=== PATIENT | female | born 1955 | race Caucasian/White ===

== ENCOUNTER → 2023-07-16 08:12 | Outpatient (REF) | payer OTHER, SELFPAY | LOC: RCS 08:12 | PROVIDERS: ATTENDING PHYSICIAN Internal Medicine Cardiovascular Disease; FAMILY PHYSICIAN Family Medicine | DX: I25.10 Atherosclerotic heart disease of native coronary artery without angina pectoris (principal); Z85.3 Personal history of malignant neoplasm of breast | CPT/HCPCS: 93306; 93356 ==

== ENCOUNTER → 2023-08-06 12:08 | Outpatient (REF) | payer OTHER, SELFPAY ==
[2023-08-06 12:40] VITALS: BP 137/62; BP_SYST 87
== END ==
LOC: RADI 12:08
PROVIDERS: ATTENDING PHYSICIAN Internal Medicine Hematology & Oncology
DX: Z45.2 Encounter for adjustment and management of vascular access device (principal)
CPT/HCPCS: 36590; 77001

== ENCOUNTER → 2023-08-15 13:43 | Outpatient (REF) | payer OTHER, SELFPAY | LOC: PAVMRI 13:43 | PROVIDERS: ATTENDING PHYSICIAN Radiology Radiation Oncology; FAMILY PHYSICIAN Family Medicine | DX: C50.411 Malignant neoplasm of upper-outer quadrant of right female breast (principal); Z17.0 Estrogen receptor positive status [ER+] | CPT/HCPCS: 77049; A9585 ==

== ENCOUNTER → 2023-10-03 08:57 | Outpatient (REF) | payer OTHER, SELFPAY | LOC: HWRAD 08:57 | PROVIDERS: ATTENDING PHYSICIAN Surgery; FAMILY PHYSICIAN Family Medicine; OTHER PHYSICIAN Internal Medicine Hematology & Oncology; REFERRING PHYSICIAN Obstetrics & Gynecology Gynecology | DX: C50.411 Malignant neoplasm of upper-outer quadrant of right female breast (principal); R92.2 Inconclusive mammogram | CPT/HCPCS: 77080 ==

== ENCOUNTER → 2023-12-08 13:21 | Outpatient (REF) | payer OTHER, SELFPAY | LOC: WDC 13:21 | PROVIDERS: ATTENDING PHYSICIAN Family Medicine Geriatric Medicine; FAMILY PHYSICIAN Family Medicine | DX: Z12.31 Encounter for screening mammogram for malignant neoplasm of breast (principal); Z12.39 Encounter for other screening for malignant neoplasm of breast; Z85.3 Personal history of malignant neoplasm of breast; C50.411 Malignant neoplasm of upper-outer quadrant of right female breast; Z17.0 Estrogen receptor positive status [ER+] | CPT/HCPCS: 77063; 77067 ==

== ENCOUNTER → 2024-07-07 15:10 | Outpatient (REF) | payer OTHER, SELFPAY | LOC: RAD 15:10 | PROVIDERS: ATTENDING PHYSICIAN Internal Medicine Hematology & Oncology; FAMILY PHYSICIAN Family Medicine | DX: Z85.820 Personal history of malignant melanoma of skin (principal); C50.411 Malignant neoplasm of upper-outer quadrant of right female breast | CPT/HCPCS: 71260; 74177; Q9967 ==

== ENCOUNTER 2024-10-23 13:34 | Emergency (ER) | payer OTHER, SELFPAY ==
[2024-10-23 13:38] VITALS: BP 170/98
[2024-10-23 14:14] LABS: ALT (SGPT) 18 U/L (0-35); AST (SGOT) 20 U/L (14-36); Albumin 4.3 g/dl (3.5-5.0); Alkaline Phosphatase 78 U/L (38-126); Blood Urea Nitrogen 14 mg/dl (7-17); Carbon Dioxide 26 mmol/L (22-30); Chloride 108 mmol/L (98-107); Glucose 131 mg/dl (70-99); Lipase 67 U/L (23-300); Sodium 141 mmol/L (135-145); Total Bilirubin 0.7 mg/dl (0.2-1.3); eGFR > 60.00
[2024-10-23 14:21] LABS: % Basophils 0.4 % (0-2); % Eosinophils 2.9 % (0-6); % Immature Granulocytes 0.3 % (0-0.5); % Monocytes 7.4 % (1.7-9.3); Absolute Eosinophils 0.3 10^3/uL (0-0.7); Absolute Lymphocytes 1.8 10^3/uL (1.2-3.4); Absolute Monocytes 0.7 10^3/uL (0.1-0.6); Absolute Neutrophils 6.8 10^3/uL (1.4-6.5); Hematocrit 41.5 % (37.0-47.0); Hemoglobin 13.7 g/dL (12.0-16.0); Mean Corpuscular Hgb 27.5 pg (27.0-31.0); Mean Corpuscular Volume 83.2 fL (81.0-99.0); Mean Platelet Volume 9.4 fL (7.4-10.4); Nucleated Red Blood Cells % 0 %; Platelet Count 268 10^3/uL (130-400); Red Blood Cell Count 4.99 10^6/uL (4.20-5.40); Red Cell Dist. Width 14.6 % (11.5-14.5); White Blood Cell Count 9.7 10^3/uL (4.8-10.8)
--- NOTE | 2024-10-23 15:34 | ED.GENMED ---
History of Present Illness
General
Chief Complaint: Abdominal Pain
Source: patient
Exam Limitations: none
Time Seen by Provider: 10/23/24 15:15
History of Present Illness
History of Present Illness:
69-year-old female presents complaining of 5 to 6 days worth of worsening left lower abdominal pain. She has a history of diverticulitis this feels similar but seems to be worse. She is been trying a bland diet and lots of liquids without relief.
No fever or vomiting. No urinary symptoms. Saw her family doctor today and was referred here for further evaluation
Past History
Past History
ED Past Medical History: CAD, HTN and Other (Duodenal ulcers, gallstones)
ED Past Surgical History: Cardiac, Gynecological (Ovarian surgery, laparoscopic surgery) and Tonsilectomy
Social History
Tobacco: Non-smoker
Alcohol: Occasional
Drug: None
Personal:
Living: with family
Employment: Employed
Phy Exam
Physical Exam
Physical Exam:
General: Well-appearing female no acute respiratory distress HEENT: Normocephalic atraumatic
Heart: Regular rate and rhythm
Lungs: Clear no wheeze
Abdomen soft tender to the left mid and lower abdomen mild guarding no rebound
Extremities: No cyanosis or edema
Skin is warm no rash
Course
Orders/Labs/Results
Orders:
Orders
10/23/24 13:49
Complete Blood Count/With Diff Urgent
Comprehensive Metabolic Panel Urgent
Lipase Urgent
10/23/24 15:27
Ketorolac [Toradol] 15 mg IV NOW STA
Ondansetron Injectable [Zofran] 4 mg IV NOW STA
10/23/24 15:28
CT Abd/pelvis W Iv Cont Urgent
Comment:
Reason For Exam: left abdominal pain
10/23/24 18:44
Amoxicillin 875 mg/Clav 125 mg [Augmentin 875 mg/125 mg] 1 tablet PO NOW STA
Abnormal Lab Results
10/23/24
13:49
RDW 14.6 H %
(11.5-14.5)
Absolute Neuts (auto) 6.8 H 10^3/uL
(1.4-6.5)
Absolute Monos (auto) 0.7 H 10^3/uL
(0.1-0.6)
Lymphocytes % 19.0 L %
(20.5-51.1)
Chloride 108 H mmol/L
(98-107)
Glucose 131 H mg/dl
(70-99)
10/23/24 13:49
10/23/24 13:49
Vital Signs
Initial and Last Documented VS:
Initial Vital Signs
Temp Pulse Resp BP Pulse Ox
98.2 F 89 18 170/98 99
10/23/24 13:38 10/23/24 13:38 10/23/24 13:38 10/23/24 13:38 10/23/24 13:38
Last Documented Vital Signs
Temp Pulse Resp BP Pulse Ox
98.2 F 82 20 133/47 98
10/23/24 13:38 10/23/24 16:29 10/23/24 16:29 10/23/24 17:00 10/23/24 17:15
MDM/Problems Addressed
Differential Diagnosis Includes:
Left abdominal pain. Consider diverticulitis versus abscess versus bowel obstruction versus constipation
Tender on exam labs reviewed without significant findings. CT pending Toradol and Zofran ordered
*Critical Care Note
Total Time (30-74mins, 75-104mins- exclusive of procedures): Not Applicable
Update Note
Update Note:
CT shows diverticulosis without evidence of diverticulitis. White count normal. Patient quite tender to the left lower quadrant. She has had diverticulitis before and this feels similar. Long discussion and shared decision making occurred.
Opted for treatment and coverage for diverticulitis given the clinical picture. Will cover with Augmentin.
ED Attending Note
-
Portions of this chart may have been created with voice recognition software.� Occasional wrong word or��sound alike� substitutions may have occurred due to the inherent limitations of voice recognition software.
Discharge Plan
Departure
Patient Disposition: Home (Routine Discharge)
Date of Disposition: 10/23/24
Time of Disposition: 18:46
Patient with high blood pressure during this ER visit?: No
Discharge Problem:
Abdominal pain
Instructions: Diverticulitis (DC)
Prescriptions:
New
amoxicillin-pot clavulanate 875-125 mg tablet
1 tab PO BID Qty: 19 0RF
No Action
aspirin 81 MG tablet,delayed release (DR/EC)
81 mg PO DAILY
Patient Comments:
Delayed release
nitroglycerin 0.4 MG tablet, sublingual
0.4 mg sublingual [id number] PRN (Reason: chest pain) Qty: 30 2RF
losartan 50 MG tablet
50 mg PO DAILY
atorvastatin 40 MG tablet
80 mg PO QPM
acetaminophen 325 MG tablet
650 mg PO Q4HPRN PRN (Reason: mild pain) Qty: 1 0RF
ezetimibe 10 mg Tablet
10 mg PO DAILY
Referrals:
Marvin Ibrahim MD [Family Provider] -
Activity Restrictions/Additional Instructions:
Continue with plenty of clear liquids. Use Tylenol if needed for pain. Take Augmentin as directed. Return here for worsening symptoms
Interventions
Interventions:
*Risk Screen - Suicide Last Done: 10/23/24 13:38
*General Assessment Last Done: 10/23/24 13:38
*Neglect/Abuse Screening Last Done: 10/23/24 16:34
*ED COVID-19 Vaccine History Last Done: 10/23/24 16:34
[facility] Assessment Last Done: 10/23/24 16:34
Discharge Date and Time
Print Language: GREENLANDIC
[2024-10-23 16:28] VITALS: BP 164/64
[2024-10-23 16:29] VITALS: BP 164/64; BMI 31.2
[2024-10-23 17:00] VITALS: BP 133/47
[2024-10-23] MEDS: AUGMENTIN 875 MG/125 MG 1 TABLET PO (19:06)
[2024-10-23 19:08] VITALS: BP 138/67
== END 2024-10-23 19:20 | disposition home or self-care (01) ==
LOC: EMR 13:34
PROVIDERS: EMERGENCY PHYSICIAN Emergency Medicine; FAMILY PHYSICIAN Family Medicine
DX: R10.32 Left lower quadrant pain (principal); I25.10 Atherosclerotic heart disease of native coronary artery without angina pectoris; I10 Essential (primary) hypertension; Z85.3 Personal history of malignant neoplasm of breast; Z85.820 Personal history of malignant melanoma of skin; Z90.49 Acquired absence of other specified parts of digestive tract; Z95.5 Presence of coronary angioplasty implant and graft
CPT/HCPCS: 99284; 96374; 96375; 74177; 80053; 83690; 85025; Q9967

== ENCOUNTER → 2024-12-02 15:14 | Outpatient (REF) | payer OTHER, SELFPAY | LOC: RCS 15:14 | PROVIDERS: ATTENDING PHYSICIAN Orthopaedic Surgery; FAMILY PHYSICIAN Family Medicine | DX: Z01.818 Encounter for other preprocedural examination (principal) | CPT/HCPCS: 93005 ==

== ENCOUNTER → 2024-12-08 13:23 | Outpatient (REF) | payer OTHER, SELFPAY | LOC: WDC 13:23 | PROVIDERS: ATTENDING PHYSICIAN Obstetrics & Gynecology Gynecology | DX: Z12.31 Encounter for screening mammogram for malignant neoplasm of breast (principal); Z85.3 Personal history of malignant neoplasm of breast | CPT/HCPCS: 77063; 77067 ==

== ENCOUNTER → 2024-12-14 10:29 | Outpatient (REF) | payer OTHER, SELFPAY | LOC: WDC 10:29 | PROVIDERS: ATTENDING PHYSICIAN Obstetrics & Gynecology Gynecology | DX: R92.8 Other abnormal and inconclusive findings on diagnostic imaging of breast (principal) | CPT/HCPCS: 76642 ==

== ENCOUNTER → 2025-03-23 14:51 | Outpatient (REF) | payer OTHER, SELFPAY | LOC: HWRAD 14:51 | PROVIDERS: ATTENDING PHYSICIAN Nurse Practitioner Adult Health; FAMILY PHYSICIAN Family Medicine | DX: Z85.820 Personal history of malignant melanoma of skin (principal); C50.411 Malignant neoplasm of upper-outer quadrant of right female breast | CPT/HCPCS: 72072 ==